=== PATIENT | male | born 1990 | race African-American/Black ===

== ENCOUNTER 2020-07-20 02:08 | Emergency (ER) | payer MEDICAID ==
[~2020-07-20] VITALS: Ht 198.1 cm; Wt 91.2 kg
[2020-07-20 02:53] VITALS: BP 148/92
== END 2020-07-20 03:43 | disposition home or self-care (01) ==
LOC: ER 02:12
DX: M25.571 Pain in right ankle and joints of right foot (principal); M25.572 Pain in left ankle and joints of left foot; J45.909 Unspecified asthma, uncomplicated; Z76.0 Encounter for issue of repeat prescription; Y04.0XXA Assault by unarmed brawl or fight, initial encounter